=== PATIENT | male | born 1975 ===

== ENCOUNTER 2016-10-29 06:09 | Inpatient (IN) | payer MEDICAID, OTHER ==
[2016-10-29 06:54] LABS: RBC URINE 1 /hpf (0-3); URINE BILIRUBIN NEGATIVE (NEGATIVE); URINE BLOOD NEGATIVE (NEGATIVE); URINE COLOR Yellow (YELLOW); URINE GLUCOSE (UA) NORMAL (Normal); URINE KETONE TRACE mg/dL (NEGATIVE); URINE LEUKOCYTE ESTERASE NEG Leu/uL (Negative); URINE PROTEIN NEGATIVE (NEGATIVE); URINE UROBILINOGEN NORMAL mg/dL (0.2-1.0); WBC URINE < 1 /hpf (0-5)
[2016-10-29 06:58] LABS: BASO % 0.8 % (0.0-2.0); EOS # 0.1 K/uL (0.0-0.7); EOS % 1.6 % (0.0-4.0); HEMATOCRIT 45.3 % (35.0-51.0); LYMPH # 2.2 K/uL (1.0-4.3); LYMPH % 36.7 % (20.0-40.0); MEAN CELL VOLUME 93.7 fL (80.0-94.0); MEAN CORPUSCULAR HEMOGLOBIN 31.7 pg (27.0-31.0); MEAN CORPUSCULAR HGB CONC 33.8 g/dL (33.0-37.0); MEAN PLATELET VOLUME 7.8 fL (7.2-11.7); MONO # 0.5 K/uL (0.0-0.8); MONO % 8.3 % (0.0-10.0); NRBC % 0.1 % (0.0-2.0); RED CELL DISTRIBUTION WIDTH 15.1 % (11.5-14.5); WHITE BLOOD COUNT 6.1 K/uL (4.8-10.8)
[2016-10-29 07:11] LABS: ALB/GLOB RATIO 1.4 (1.0-2.1); ALCOHOL SERUM 22 mg/dl (0-10); ALKALINE PHOSPHATASE 51 U/L (38-126); ALT/SGPT 45 U/L (21-72); AST/SGOT 44 U/L (17-59); BILIRUBIN,TOTAL 0.4 mg/dL (0.2-1.3); BLOOD UREA NITROGEN 12 mg/dL (9-20); CALCIUM 9.3 mg/dl (8.6-10.4); CARBON DIOXIDE 23 mmol/L (22-30); CHLORIDE 102 mmol/L (98-107); GFR AFRICAN-AMERICAN > 60; GLUCOSE,RANDOM 106 mg/dL (75-110); POTASSIUM 3.9 mmol/L (3.6-5.2); SODIUM 140 mmol/L (132-148); TOTAL PROTEIN 6.7 g/dL (6.3-8.3)
--- NOTE | 2016-10-29 07:21 | C.PDOC ---
History Of Present Illness 41 year old male presents to the ED as a pre-screen for alcohol detox. Patient states he has approximately one gallon of vodka a day and his last drink was 9: 30pm last night. He notes he feels "shakey" and admits to occasionally taking Ativan that he "got from [place]." Patient has a history of withdrawal seizures in 2012. He denies the use of other drugs, fever, vomiting, suicidal or homicidal ideations. Time Seen by Provider: 10/29/16 07:13 Chief Complaint (Nursing): Substance Abuse History Per: Patient History/Exam Limitations: no limitations Current Symptoms Are (Timing): Still Present Suicide/Self Injury Attempted (Context): None Severity: None Pain Scale Rating Of: 0 Associated Symptoms: denies: Suicidal Thoughts, Suicidal Plan Involuntary Hold By: None Recent travel outside of the [place]: No Past Medical History Reviewed: Historical Data, Nursing Documentation, Vital Signs Vital Signs: Last Vital Signs Temp 97.9 F 11/02/16 06:15 Pulse 65 11/02/16 06:15 Resp 18 11/02/16 06:15 BP 121/81 11/02/16 06:15 Pulse Ox 98 11/02/16 06:15 - Medical History PMH: Cardia Arrhythmia (svt) Family History: States: Unknown Family Hx - Social History Hx Alcohol Use: Yes Hx Substance Use: No - Immunization History Hx Tetanus Toxoid Vaccination: No Hx Influenza Vaccination: No Hx Pneumococcal Vaccination: No Review Of Systems Except As Marked, All Systems Reviewed And Found Negative. Constitutional: Negative for: Fever Cardiovascular: Negative for: Chest Pain Respiratory: Negative for: Shortness of Breath Gastrointestinal: Negative for: Vomiting Physical Exam - Physical Exam Appears: Non-toxic, No Acute Distress, Other (Mildly tremulous ) Skin: Warm, Dry Head: Atraumatic Eye(s): bilateral: Normal Inspection, PERRL, EOMI Oral Mucosa: Moist Neck: Supple Chest: Symmetrical, No Deformity Cardiovascular: Rhythm Regular Respiratory: Normal Breath Sounds, No Rales, No Rhonchi, No Wheezing Gastrointestinal/Abdominal: Soft, No Tenderness, No Distention, No Guarding, No Rebound Extremity: Normal ROM, No Tenderness Neurological/Psych: Oriented x3, Normal Speech, Normal Cognition, Normal Motor, Normal Sensation ED Course And Treatment - Laboratory Results Result Diagrams: 10/29/16 06:45 10/29/16 06:45 O2 Sat by Pulse Oximetry: 96 (room air ) Progress Note: UA and blood work was ordered. Patient was given Librium. Disposition - Disposition Disposition: HOSPITALIZED Disposition Time: 08:26 Condition: STABLE - Clinical Impression Clinical Impression: Alcohol use disorder, severe, dependence - Scribe Statement The provider has reviewed the documentation as recorded by the Scribe Chelsie Dsouza All medical record entries made by the Beverleyibe were at my direction and personally dictated by me. I have reviewed the chart and agree that the record accurately reflects my personal performance of the history, physical exam, medical decision making, and the department course for this patient. I have also personally directed, reviewed, and agree with the discharge instructions and disposition.
--- NOTE | 2016-10-29 10:12 | PCM.BM ---
<Nat Donaldson - Last Filed: 10/29/16 10:10> Treatment Plan Problems - Problems identified on initial assessmt Potential for alcohol withdrawal Date Initiated: 10/29/16 Time Initiated: 10:11 Assessment reference: NA Status: Active Treatment assets and liabiliti Patient Assests: adapts well, cooperative, motivated, ADL independent, negotiates basic needs Patient Liabilities: substance abuse - Milieu Protocol Maintain good personal hygiene: daily Encourage regular showers, daily Remind patient to perform daily oral care, daily Assist patient to perform ADL's Conduct patient checks and document Observation sheet: Q15 minutes Maintain personal safety: every shift Educate patient to report safety concerns to staff, every shift Monitor environment for contraband/sharps Medication safety: Monitor for expected outcome, potential side effects: every shift, Assess barriers to learning: every shift, Assess readiness for medication education: every shift <Christopher Hoskins - Last Filed: 10/30/16 17:59> - Diagnosis (1) Alcohol use disorder, severe, dependence Status: Acute Interventions: 10/30/16 17:59 * Assess 7x/week regarding severity of withdrawal * Educate regarding risks, benefits, side effects and alternatives of medications * Use Motivational Interviewing for abstinence * Use CBT for relapse prevention * Medication management for withdrawal symptoms * Encourage medication assisted treatment * <Destiny Stephenson - Last Filed: 10/31/16 07:23> Family Contact Family involvement: Family/SO is involved Family contact: Patient agrees to contact, Telephone contact initiated by staff - Goals for Treatment Patient goals for treatment: Complete detox and transition to IOP. Discharge/Continuing Care - Education Needs Education Needs: Patient Medication, Patient Diagnosis/Disease Process, Patient Coping Skills, Patient Anger Management skills, Patient Placement options, Patient Community resources - Discharge Discharge Criteria: Free of agitation, Normal sleep pattern, No longer exhibiting s/s of withdrawal, Reduction of target symptoms Discharge to:: Home - Treatment Team Participation Patient/Family/SO Statement: 10/31/16 07:22 "I wanna go to IOP...I don't wanna do inpatient". Discussed with Family/SO: No Was Patient/Family/SO present at Treatment Team Meeting: Yes
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
[2016-10-29] MEDS: RESTASIS EYE OU SCH (21:39)
[2016-10-30] MEDS: Metoprolol Succinate 50 mg XL Tab PO SCH (10:02)
[2016-10-30] MEDS: Multiple Vitamins Tab PO SCH (11:19)
--- NOTE | 2016-10-30 15:15 | PCM.PYCHPN ---
Psychiatric Progress Note - Psychiatric Progress Note Patient seen today, length of contact: 15 min. Patient Chief Complaint: "I feel okay." Problems Identified/Issues Discussed: The pt. is seen, chart reviewed, case discussed with staff. Pt. reports that Librium has been making him sleepy and shaky. Pt specifically reports that he is not interested in using Naltrexone after detox. He plans to attend AA after detox. Support given, CBT and NM used briefly. Pt. is compliant with medications and reports no side-effects. Symptoms are improving but needs more time to stabilize. After care discussed. Medication Change: Yes (Trazodone dosage increased to 100 mg) Medical Record Reviewed: Yes Mental Status Examination - Cognitive Function Orientation: Person, Place, Situation, Time Memory: Intact Attention: WNL Concentration: WNL Association: WNL Fund of Knowledge: WNL - Mood Mood: Neutral - Affect Affect: Broad - Speech Speech: Appropriate - Formal Thought Process Formal Thought Process: No Impairment - Suicidal Ideation Suicidal Ideation: No - Homicidal Ideation Homicidal Ideation: No Goal/Treatment Plan - Goal/Treatment Plan Need for Continued Stay: Discharge may exacerbated symptoms Progress Toward Problem(s) and Goals/Treatment Plan: Alcohol use disorder-severe NM for abstinence Support and psychoeducation daily Attend groups and activities daily Alcohol withdrawal Librium detox As needed meds and vitamins Attend groups and activities NM for abstinence and CBT for relapse prevention Support and psychoeducation Consider and encourage MAT Refer to after care. Pt. plans to attend AA after detox. Seizure disorder Observation SVT Toprol 50 mg PO DAILY - Smoking Cessation Smoking Cessation Initiated: No
[2016-10-30] MEDS: RESTASIS EYE OU SCH (21:45)
[2016-10-31] MEDS: Multiple Vitamins Tab PO SCH (09:40)
[2016-10-31] MEDS: Metoprolol Succinate 50 mg XL Tab PO SCH (09:40)
[2016-10-31 14:14] VITALS: RESP 18
--- NOTE | 2016-10-31 14:24 | PCM.PYCHPN ---
Psychiatric Progress Note - Psychiatric Progress Note Patient seen today, length of contact: 15 min. Patient Chief Complaint: "Detox is okay so far." Problems Identified/Issues Discussed: The pt. is seen, chart reviewed, case discussed with staff. Pt. reports he feels a bit anxious, but denies other withdrawal sxs. Pt. still reports that he does not want Naltrexone b/c he will not commit to it. Support given, CBT and PA used briefly. Pt. is compliant with medications and reports no side-effects. No new symptoms reported, improving slowly, and needs more time. After care discussed. Pt. 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 Medication Change: Yes (Neurontin 300 mg) Medical Record Reviewed: Yes Mental Status Examination - Cognitive Function Orientation: Person, Place, Situation, Time Memory: Intact Attention: WNL Concentration: WNL Association: WNL Fund of Knowledge: WNL - Mood Mood: Neutral - Affect Affect: Broad - Speech Speech: Appropriate - Formal Thought Process Formal Thought Process: No Impairment - Suicidal Ideation Suicidal Ideation: No - Homicidal Ideation Homicidal Ideation: No Goal/Treatment Plan - Goal/Treatment Plan Need for Continued Stay: Discharge may exacerbated symptoms Progress Toward Problem(s) and Goals/Treatment Plan: Alcohol use disorder-severe PA for abstinence Support and psychoeducation daily Attend groups and activities daily Alcohol withdrawal Librium detox Neurontin As needed meds and vitamins Attend groups and activities PA for abstinence and CBT for relapse prevention Support and psychoeducation Consider and encourage MAT Refer to after care. Pt. is open to attending IOP in [facility] or after detox. Seizure disorder Observation SVT Toprol 50 mg PO DAILY
[2016-10-31] MEDS: RESTASIS EYE OU SCH (22:07)
[2016-11-01] MEDS: Multiple Vitamins Tab PO SCH (10:24)
[2016-11-01] MEDS: Metoprolol Succinate 50 mg XL Tab PO SCH (10:24)
[2016-11-01] MEDS ORDERED: RESTASIS OU SCH (11:30)
--- NOTE | 2016-11-01 13:09 | PCM.PYCHPN ---
Psychiatric Progress Note - Psychiatric Progress Note Patient seen today, length of contact: 15 min. Patient Chief Complaint: "I feel better" Problems Identified/Issues Discussed: The pt. is seen, chart reviewed, case discussed with staff. Pt. reports he currently has no withdrawal sxs. Support given, CBT and ND used briefly. Pt. is compliant with medications and reports no side-effects, except he wants to discontinue Neurontin b/c it made him feel groggy and lethargic. No new symptoms reported, improving slowly, and needs more time. After care discussed. Pt. states that he will be going to [facility] in [facility] and also attend AA meetings. Medication Change: Yes (Neurontin DC) Medical Record Reviewed: Yes Mental Status Examination - Cognitive Function Orientation: Person, Place, Situation, Time Memory: Intact Attention: WNL Concentration: WNL Association: WNL Fund of Knowledge: WNL - Mood Mood: Neutral - Affect Affect: Broad - Speech Speech: Appropriate - Formal Thought Process Formal Thought Process: No Impairment - Suicidal Ideation Suicidal Ideation: No - Homicidal Ideation Homicidal Ideation: No Goal/Treatment Plan - Goal/Treatment Plan Need for Continued Stay: Discharge may exacerbated symptoms Progress Toward Problem(s) and Goals/Treatment Plan: Alcohol use disorder-severe ND for abstinence Support and psychoeducation daily Attend groups and activities daily Alcohol withdrawal Librium detox As needed meds and vitamins Attend groups and activities ND for abstinence and CBT for relapse prevention Support and psychoeducation Consider and encourage MAT Refer to after care. Pt. is planning on going to [facility] in [facility] and AA meetings. Seizure disorder Observation SVT Toprol 50 mg PO DAILY Estimated Date of D/C: 11/02/16 - Smoking Cessation Smoking Cessation Initiated: No
[2016-11-01] MEDS ORDERED: Aritificial Tears (15ml) OU PRN (16:59)
--- NOTE | 2016-11-02 08:53 | PCM.PYCHDC ---
Mental Status Examination - Mental Status Examination Orientation: Person, Place, Situation, Time Memory: Intact Mood: Neutral Affect: Broad Speech: Appropriate Attention: WNL Concentration: WNL Association: WNL Fund of Knowledge: WNL Formal Thought Process: No Impairment Suicidal Ideation: No Current Homicidal Ideation?: No Discharge Summary - Discharge Note Reason for Hospitalization: Alcohol use d/o-severe Alcohol withdrawal Seizure d/o SVT Psychiatric History (includes Medical, Family, Personal Hx): 2 detoxes, 2 rehabs , [facility] Consultations:: List each consultation separately and include: 1. Reason for request. 2. Findings. 3. Follow-up Summary of Hospital Course include:: 1. Description of specific treatment plan utilized for patients during their course of treatmen. 2. Summarize the time- course for resolution of acute symptoms and/or regressed behaviors. 3. Describe issues identified and worked on during hospitalization. 4. Describe medication utilized. 5. Describe medical problems identified and treated. 6. Reassessment of suicide risk Summary of Hospital Course: The pt. was admitted and started on treatment with psychotherapy, support, psychoeducation, and medications. [place] and CBT used. The pt. attended groups and activities, as well as milieu therapy. All the risks and benefits of medications are discussed and the patient understood and agreed. The pt. improved with the treatments provided. After care discussed with pt. Pt. states he will be going to [facility] in [place] and also attend AA meetings. - Diagnosis (1) Alcohol use disorder, severe, dependence Status: Acute - Final Diagnosis (DSM 5) DSM 5: Alcohol use d/o-severe Alcohol withdrawal Seizure d/o SVT Disposition: REHAB FACILITY/REHAB UNIT Follow-up Treatment Plan: Continue below medications after discharge. Follow after care plan as discussed. Use relapse prevention skills. Return to ER or call 911 if suicidal, homicidal, or symptoms relapse. Stay away from stress, alcohol, and drugs. See primary doctor once a year. Prescriptions/Medication Reconciliation: Metoprolol Succinate [Toprol XL] 50 mg PO DAILY #30 tab - Smoking Cessation Smoking Cessation Medication prescribed: No - Antipsychotic Medications Pt discharged on 2 or more routine antipsychotic medications: No
[2016-11-02 09:03] VITALS: BP 133/84; PULSE 80; TEMP 97.8; O2SAT 98
[2016-11-02] MEDS: Metoprolol Succinate 50 mg XL Tab PO SCH (09:09)
[2016-11-02] MEDS: Multiple Vitamins Tab PO SCH (09:10)
== END 2016-11-02 09:45 | DRG 751 ==
LOC: C.ER 06:09 → SUPCPDRO 06:09 → C.7D 08:26
PROVIDERS: ADMIT Psychiatry & Neurology Psychiatry; ATTEND Psychiatry & Neurology Psychiatry
PROC: HZ2ZZZZ Detoxification Services for Substance Abuse Treatment (ICD-10-PCS; principal; 2016-10-29)
PROC: HZ46ZZZ Group Counseling for Substance Abuse Treatment, Psychoeducation (ICD-10-PCS; 2016-10-29)
PROC: HZ59ZZZ Individual Psychotherapy for Substance Abuse Treatment, Supportive (ICD-10-PCS; 2016-10-29)
PROC: HZ56ZZZ Individual Psychotherapy for Substance Abuse Treatment, Psychoeducation (ICD-10-PCS; 2016-10-29)
DX: F10.20 Alcohol dependence, uncomplicated (principal); I47.1 Supraventricular tachycardia; G40.909 Epilepsy, unspecified, not intractable, without status epilepticus